=== PATIENT | male | born 1940 | race African-American/Black ===

== ENCOUNTER 2019-03-07 10:55 | Emergency (ER) | payer MEDICARE ==
--- NOTE | 2019-03-07 11:45 | ER Document Report ---
ED Medical Screen (RME) - General Chief Complaint: Shortness Of Breath Stated Complaint: SHORTNESS OF BREATH Time Seen by Provider: 03/07/19 11:26 Primary Care Provider: YOKASTA JOYCE MD [Primary Care Provider] - Follow up as needed Mode of Arrival: Ambulatory Information source: Patient Notes: 79-year-old male with history of COPD presenting with cough, congestion that has been going on for at least 1 week. Patient's daughter reports patient has had fever over the last 2 days. She states that she wants him checked out for pneumonia as he has been diagnosed with this before and it has been missed. Exam: Lung sounds clear and equal bilaterally I have greeted and performed a rapid initial assessment of this patient. A comprehensive ED assessment and evaluation of the patient, analysis of test results and completion of the medical decision making process will be conducted by additional ED providers. I have specifically instructed the patient or fa gerri members with the patient to immediately return to any nursing staff should anything change in the patient's condition or with their chief complaint. This medical record was dictated with voice recognizing software. There may be grammatical, syntax errors that are unintended. TRAVEL OUTSIDE OF THE [place] IN LAST 30 DAYS: No - Related Data Allergies/Adverse Reactions: No Known Allergies Allergy (Verified 07/30/11 16:00) Past Medical History Past Surgical History: Reports: Hx Appendectomy - Immunizations Hx Diphtheria, Pertussis, Tetanus Vaccination: Yes Physical Exam - Vital signs Vitals: Temp Pulse Resp BP Pulse Ox 97.8 F 93 18 115/55 L 91 L 03/07/19 11:19 03/07/19 11:19 03/07/19 11:19 03/07/19 11:19 03/07/19 11:19 Course - Vital Signs Vital signs: Temp Pulse Resp BP Pulse Ox 97.8 F 93 18 115/55 L 91 L 03/07/19 11:19 03/07/19 11:19 03/07/19 11:19 03/07/19 11:19 03/07/19 11:19 Doctor's Discharge - Discharge Referrals: YOKASTA JOYCE MD [Primary Care Provider] - Follow up as needed
[2019-03-07 12:12] LABS: HEMATOCRIT 39.9 % (37.9-51.0); HEMOGLOBIN 13.1 g/dL (13.5-17.0); MEAN CORPUSCULAR HGB CONC 32.9 g/dL (32.0-36.0); MEAN CORPUSCULAR VOLUME 73 fl (80-97); PLATELET COUNT 134 10^3/uL (150-450); RED BLOOD COUNT 5.47 10^6/uL (4.35-5.55); RED CELL DISTRIBUTION WIDTH 14.4 % (11.5-14.0); WHITE BLOOD COUNT 5.1 10^3/uL (4.0-10.5)
[2019-03-07 12:27] LABS: ALBUMIN 3.8 g/dL (3.5-5.0); ALKALINE PHOSPHATASE 63 U/L (38-126); ANION GAP 12 (5-19); ASPARTATE AMINO TRANSFERASE 38 U/L (17-59); BILIRUBIN,DIRECT 0.3 mg/dL (0.0-0.4); BILIRUBIN,TOTAL 0.7 mg/dL (0.2-1.3); BLOOD UREA NITROGEN 31 mg/dL (7-20); CALCIUM 9.2 mg/dL (8.4-10.2); CARBON DIOXIDE 27 mmol/L (22-30); CHLORIDE 98 mmol/L (98-107); GLUCOSE 100 mg/dL (75-110); POTASSIUM 4.3 mmol/L (3.6-5.0); TOTAL PROTEIN 7.4 g/dL (6.3-8.2)
[2019-03-07 12:41] LABS: ABSOLUTE LYMPHOCYTES# (MANUAL) 1.8 10^3/uL (0.5-4.7); ABSOLUTE MONOCYTES # (MANUAL) 0.4 10^3/uL (0.1-1.4); BASOPHILS % (MANUAL) 2 % (0-2); EOSINOPHILS % (MANUAL) 0 % (0-6); LYMPHOCYTES % (MANUAL) 30 % (13-45); MONOCYTES % (MANUAL) 7 % (3-13); NUCLEATED RED BLOOD CELLS 2 /100 WBC (0); SEGMENTED NEUTROPHILS % (MAN) 56 % (42-78); TOTAL CELLS COUNTED 100
[2019-03-07 12:42] LABS: ANISOCYTOSIS SLIGHT; HYPOCHROMASIA SLIGHT; PLATELET COMMENT ADEQUATE; PLATELET GIANT PRESENT; PLATELET LARGE PRESENT; SMUDGE CELLS PRESENT
--- NOTE | 2019-03-07 12:42 | RADIOLOGY REPORT (SQ) ---
EXAM DESCRIPTION: CHEST 2 VIEWS COMPLETED DATE/TIME: 03/07/2019 11:59 am REASON FOR STUDY: cough/fever COMPARISON: PA and lateral views of the chest from 02/20/2013. EXAM PARAMETERS: NUMBER OF VIEWS: two views TECHNIQUE: PA and lateral views of the chest were obtained. RADIATION DOSE: NA LIMITATIONS: none FINDINGS: LUNGS AND PLEURA: Findings of COPD without a superimposed consolidation, pleural effusion or pneumothorax. MEDIASTINUM AND HILAR STRUCTURES: No mediastinal or hilar contour abnormality. HEART AND VASCULAR STRUCTURES: The cardiac silhouette and pulmonary vasculature are within normal bowers its. BONES: No acute findings. HARDWARE: None in the chest. OTHER: No other finding. IMPRESSION: No acute cardiopulmonary process. TECHNICAL DOCUMENTATION: JOB ID: [id number] [employer]- All Rights Reserved Reading location - IP/workstation name: [email or web address]
[2019-03-07] MEDS ORDERED: IPRATROPIUM/ALBUTEROL 0.5-2.5 MG/3 ML AMPUL NEB ONE (13:25)
[2019-03-07] MEDS ORDERED: NORMAL SALINE 1000 ML 1,000 ML IV ONE (13:25)
--- NOTE | 2019-03-07 13:31 | ER Document Report ---
ED Respiratory Problem - General Chief Complaint: Shortness Of Breath Stated Complaint: SHORTNESS OF BREATH Time Seen by Provider: 03/07/19 11:26 Primary Care Provider: YOKASTA JOYCE MD [Primary Care Provider] - Follow up as needed Mode of Arrival: Ambulatory Notes: Patient is a 79-year-old male with a history of COPD, leukemia (in remission), hypertension who presents the emergency department with a chief complaint of cough and congestion. Patient reports he has had a productive cough with beige sputum and congestion for about 1 week. Patient reports he is not on oxygen for his COPD but does use his albuterol inhaler as needed. Patient states he feels like he is used his inhaler a few times over the past week. Patient denies wheezing. Patient reports last which was 6 days ago he felt like he had chills but has not had a fever at home. Patient reports over the past week due to his cough he has not wanted to get out of the bed and has had decreased liquid intake. Patient does smoke 1 pack of cigarettes per day. TRAVEL OUTSIDE OF THE [place] IN LAST 30 DAYS: No - Related Data Allergies/Adverse Reactions: No Known Allergies Allergy (Verified 07/30/11 16:00) Past Medical History - General Information source: Patient - Social History Smoking Status: Current Every Day Smoker Chew tobacco use (# tins/day): No Frequency of alcohol use: None Drug Abuse: None Lives with: Family Family History: None Patient has suicidal ideation: No Patient has homicidal ideation: No - Past Medical History Cardiac Medical History: Reports: Hx Hypertension Pulmonary Medical History: Reports: Hx COPD, Hx Pneumonia EENT Medical History: Reports: None Neurological Medical History: Reports: None Endocrine Medical History: Reports: None Renal/ Medical History: Reports: None Malignancy Medical History: Reports Hx Leukemia GI Medical History: Reports: None Musculoskeletal Medical History: Reports None Skin Medical History: Reports None Psychiatric Medical History: Reports: None Traumatic Medical History: Reports: None Infectious Medical History: Reports: None Past Surgical History: Reports: Hx Appendectomy - Immunizations Hx Diphtheria, Pertussis, Tetanus Vaccination: Yes Review of Systems - Review of Systems Constitutional: See HPI EENT: See HPI Cardiovascular: No symptoms reported Respiratory: See HPI Gastrointestinal: See HPI Genitourinary: No symptoms reported Male Genitourinary: No symptoms reported Musculoskeletal: No symptoms reported Skin: No symptoms reported Hematologic/Lymphatic: No symptoms reported Neurological/Psychological: No symptoms reported Physical Exam - Vital signs Vitals: Temp Pulse Resp BP Pulse Ox 97.8 F 93 18 115/55 L 91 L 03/07/19 10:57 03/07/19 10:57 03/07/19 10:57 03/07/19 10:57 03/07/19 10:57 - Notes Notes: GENERAL: Well-appearing, well-nourished and in no acute distress. HEAD: Atraumatic, normocephalic. EYES: Pupils equal round and reactive to light, extraocular movements intact, sclera anicteric, conjunctiva are normal. ENT: Nares patent, oropharynx clear without exudates. Dry mucous membranes, lips dry. NECK: Normal range of motion, supple without lymphadenopathy or JVD. LUNGS: Breath sounds clear to auscultation bilaterally and equal. No wheezes or rales, + rhonchi noted to the right upper lobe anteriorly. HEART: Regular rate and rhythm without murmurs, rubs or gallops. ABDOMEN: Soft, nontender, normoactive bowel sounds. No guarding, no rebound. No masses appreciated. BACK: No cervical, thoracic, lumbar midline tenderness. No saddle anesthesia, normal distal neurovascular exam. GENITOURINARY: Deferred. EXTREMITIES: Normal range of motion, no pitting or edema. No clubbing or cyanosis. NEUROLOGICAL: Cranial nerves II through XII grossly intact. Normal speech, normal gait. PSYCH: Normal mood, normal affect. SKIN: Warm, Dry, normal turgor, no rashes or lesions noted. Course - Re-evaluation Re-evalutation: 03/07/19 13:29 Upon reevaluation of the patient as she was seen in triage patient is resting comfortably and sitting upright on stretcher. Patient does not have a cough during examination. Patient does have some scattered rhonchi in the right upper anterior lobe. Patient's chest x-ray was negative for pneumonia or any acute process, does show COPD which is consistent with the patient's history. Patient's lab work is unremarkable except an elevated BUN and creatinine. Patient does report a decreased p.o. intake over the past week due to not feeling well. We will start an IV, give IV fluids to hydrate as he does have dry mucous membranes and give a breathing treatment. Will obtain a urinalysis. Plan is to hydrate the patient, consult with his physician Dr. Joyce and discharge with strict follow-up with his primary. 03/07/19 15:30 I did speak with Dr[address] Joyce discussed the results of the patient's blood work including elevated BUN and creatinine. Patient does appear to be on a combination blood pressure pill that does have hydrochlorothiazide. He reports he will see the patient tomorrow in the office, I did speak with the paralegal legal secretary who did make an appointment for him at 930. I have made the patient and family member aware of this. - Vital Signs Vital signs: Temp Pulse Resp BP Pulse Ox 98.8 F 93 19 117/63 94 03/07/19 15:26 03/07/19 11:19 03/07/19 15:01 03/07/19 15:01 03/07/19 15:01 - Laboratory Result Diagrams: 03/07/19 11:52 03/07/19 11:52 Laboratory results interpreted by me: 03/07/19 03/07/19 03/07/19 11:52 11:52 14:15 Hgb 13.1 L MCV 73 L MCH 24.0 L RDW 14.4 H Plt Count 134 L Sodium 136.5 L BUN 31 H Creatinine 1.79 H Est GFR ( Amer) 44 L Est GFR (MDRD) Non-Af 37 L Urine Protein 30 H Urine Blood SMALL H Urine Urobilinogen 4.0 H 03/07/19 13:29 Patient does not have a significant leukocytosis. Patient's BUN and creatinine are elevated. There is no alteration in electrolytes or liver function. Laboratory 03/07/19 03/07/19 11:52 11:52 WBC 5.1 RBC 5.47 Hgb 13.1 L Hct 39.9 MCV 73 L MCH 24.0 L MCHC 32.9 RDW 14.4 H Plt Count 134 L Lymph % (Auto) Not Reportable Archer % (Auto) Not Reportable Eos % (Auto) Not Reportable Baso % (Auto) Not Reportable Absolute Neuts (auto) Not Reportable Absolute Lymphs (auto) Not Reportable Absolute Monos (auto) Not Reportable Absolute Eos (auto) Not Reportable Absolute Basos (auto) Not Reportable Total Counted 100 Seg Neutrophils % Not Reportable Seg Neuts % (Manual) 56 Lymphocytes % (Manual) 30 Atypical Lymphs % 5 Monocytes % (Manual) 7 Eosinophils % (Manual) 0 Basophils % (Manual) 2 Abs Neuts (Manual) 2.9 Abs Lymphs (Manual) 1.8 Abs Monocytes (Manual) 0.4 Absolute Eos (Manual) 0.0 Abs Basophils (Manual) 0.1 Nucleated RBCs 2 Smudge Cells PRESENT Large Platelets PRESENT Giant Platelets PRESENT Platelet Comment ADEQUATE Hypochromasia SLIGHT Anisocytosis SLIGHT Microcytosis 1+ Sodium 136.5 L Potassium 4.3 Chloride 98 Carbon Dioxide 27 Anion Gap 12 BUN 31 H Creatinine 1.79 H Est GFR ( Amer) 44 L Est GFR (MDRD) Non-Af 37 L Glucose 100 Calcium 9.2 Total Bilirubin 0.7 Direct Bilirubin 0.3 Neonat Total Bilirubin Not Reportable Neonat Direct Bilirubin Not Reportable Neonat Indirect Bili Not Reportable AST 38 ALT 15 Alkaline Phosphatase 63 Total Protein 7.4 Albumin 3.8 - Diagnostic Test Radiology reviewed: Reports reviewed Radiology results interpreted by me: 03/07/19 13:31 Chest X-Ray 03/07/19 11:43 IMPRESSION: No acute cardiopulmonary process. Discharge - Discharge Clinical Impression: Cough, Elevated BUN, Elevated serum creatinine COPD (chronic obstructive pulmonary disease) Qualifiers: COPD type: unspecified COPD Qualified Code(s): J44.9 - Chronic obstructive pulmonary disease, unspecified Condition: Stable Disposition: HOME, SELF-CARE Additional Instructions: *Today you are seen the emergency department for a cough and congestion. We did obtain a chest x-ray and basic labs which were negative for any acute abnormality. Your blood work did show that you have an elevated BUN and creatinine which is your kidney function. I did discuss the results with Dr. Joyce would like to see you in his office tomorrow. I did make you an appointment for 930. Please go to his office to be seen. In the meantime please return the emergency department if you develop any bloody sputum, fever, severe chest pain or shortness of breath. Please continue to use your albuterol inhaler as needed. Please continue to push fluids to stay hydrated. Chronic Obstructive Lung Disease You have chronic obstructive lung disease (COPD). The symptoms come from emphysema (damage to small airways, with trapping of air in large sacks in the lung) and chronic bronchitis (repeated infection and damage to larger airways). The cause is almost always cigarette smoking, although dust exposure, asthma, and infections contribute. You should avoid fumes, dust, and smoke (especially tobacco smoke). Your condition will flare from time to time. There is no cure, but the symptoms can be treated. Bronchodilators (asthma medicine) are often helpful. Antibiotics help when infection is present. When shortness of breath is severe, we may prescribe cortisone medication. If medicine doesn't help enough, we can arrange for you to have an oxygen tank at home. Notify your doctor at once if sputum becomes thick, foul, or bloody, if you develop a fever or chest pain, or if your shortness of breath worsens. Forms: Smoking Cessation Education, Special Work Note Referrals: YOKASTA JOYCE MD [Primary Care Provider] - Follow up as needed
[2019-03-07 14:30] LABS: APPEARANCE,URINE CLEAR; BILIRUBIN,URINE NEGATIVE (NEGATIVE); COLOR,URINE YELLOW; GLUCOSE, URINE NEGATIVE (NEGATIVE); KETONES,URINE NEGATIVE (NEGATIVE); LEUKOCYTE ESTERASE,URINE NEGATIVE (NEGATIVE); NITRITE,URINE NEGATIVE (NEGATIVE); PROTEIN,URINE 30 mg/dL (NEGATIVE); URINE SPECIFIC GRAVITY 1.017
[2019-03-07 15:53] VITALS: BP 137/76
== END 2019-03-07 15:43 | disposition home or self-care (01) ==
LOC: ER 10:55
DX: J44.9 Chronic obstructive pulmonary disease, unspecified (principal); R79.89 Other specified abnormal findings of blood chemistry; F17.200 Nicotine dependence, unspecified, uncomplicated; I10 Essential (primary) hypertension
CPT/HCPCS: 36415; 85025; 80053; 81001; 71046; J7030; A9270; 94640; 96360; 99285; J7620

== ENCOUNTER 2019-04-04 09:48 | Inpatient (IN) | payer MEDICARE ==
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
--- NOTE | 2019-04-04 11:28 | EKG REPORT ---
SEVERITY:- ABNORMAL ECG - SINUS TACHYCARDIA ABNRM R PROG, CONSIDER ASMI OR LEAD PLACEMENT : Confirmed by: Shama Felder 04-Apr-2019 11:27:52
--- NOTE | 2019-04-04 11:30 | RADIOLOGY REPORT (SQ) ---
EXAM DESCRIPTION: CHEST 2 VIEWS COMPLETED DATE/TIME: 04/04/2019 10:15 am REASON FOR STUDY: sob COMPARISON: 03/07/2019 EXAM PARAMETERS: NUMBER OF VIEWS: two views TECHNIQUE: Digital Frontal and Lateral radiographic views of the chest acquired. RADIATION DOSE: NA LIMITATIONS: none FINDINGS: LUNGS AND PLEURA: The lungs are hyperinflated. There is a new small left pleural effusion with compressive atelectasis at the left lung base. The right lung is clear. No pneumothorax. MEDIASTINUM AND HILAR STRUCTURES: No masses or contour abnormalities. HEART AND VASCULAR STRUCTURES: Heart normal size. No evidence for failure. BONES: No acute findings. HARDWARE: None in the chest. OTHER: No other significant finding. IMPRESSION: New small left pleural effusion. Compressive atelectasis/ consolidation at the left aidee g base. Hyperinflated lungs which can be seen with obstructive lung disease. TECHNICAL DOCUMENTATION: JOB ID: [id number] [employer]- All Rights Reserved Reading location - IP/workstation name: [email or web address]
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
[2019-04-04 11:46] LABS: ABSOLUTE LYMPHOCYTES (AUTO) 3.8 10^3/uL (0.5-4.7); ABSOLUTE MONOCYTES (AUTO) 1.1 10^3/uL (0.1-1.4); ABSOLUTE NEUT (AUTO) 13.4 10^3/uL (1.7-8.2); BASOPHILS % (AUTO) 0.8 % (0-2); EOSINOPHILS % (AUTO) 0.2 % (0-6); HEMATOCRIT 33.8 % (37.9-51.0); HEMOGLOBIN 11.2 g/dL (13.5-17.0); LYMPHOCYTES % (AUTO) 20.6 % (13-45); MEAN CORPUSCULAR HEMOGLOBIN 23.7 pg (27.0-33.4); MEAN CORPUSCULAR HGB CONC 33.1 g/dL (32.0-36.0); MEAN CORPUSCULAR VOLUME 72 fl (80-97); PLATELET COUNT 356 10^3/uL (150-450); RED BLOOD COUNT 4.73 10^6/uL (4.35-5.55); RED CELL DISTRIBUTION WIDTH 15.4 % (11.5-14.0); SEGMENTED NEUTROPHILS % (AUTO) 72.4 % (42-78); TOTAL CELLS COUNTED % (AUTO) 100 %; WHITE BLOOD COUNT 18.6 10^3/uL (4.0-10.5)
[2019-04-04 11:47] LABS: ABSOLUTE BASOPHILS # (AUTO) 0.1 10^3/uL (0.0-0.2)
[2019-04-04] MEDS ORDERED: IPRATROPIUM/ALBUTEROL 0.5-2.5 MG/3 ML AMPUL NEB SCH ×2 (12:15→14:45)
[2019-04-04 14:10] LABS: ALBUMIN 3.1 g/dL (3.5-5.0); ALKALINE PHOSPHATASE 94 U/L (38-126); ANION GAP 12 (5-19); ASPARTATE AMINO TRANSFERASE 22 U/L (17-59); BILIRUBIN,DIRECT 0.5 mg/dL (0.0-0.4); BILIRUBIN,TOTAL 0.8 mg/dL (0.2-1.3); BLOOD UREA NITROGEN 42 mg/dL (7-20); CALCIUM 9.1 mg/dL (8.4-10.2); CARBON DIOXIDE 24 mmol/L (22-30); CHLORIDE 98 mmol/L (98-107); GLUCOSE 113 mg/dL (75-110); POTASSIUM 4.1 mmol/L (3.6-5.0)
[2019-04-04] MEDS ORDERED: METHYLPREDNISOLONE INJ 125 MG/2 ML SDV IV ONE (14:36)
[2019-04-04] MEDS ORDERED: NORMAL SALINE 1000 ML 1,000 ML IV ONE (14:37)
[2019-04-04] MEDS ORDERED: CEFTRIAXONE 1 GM/D5W RTU 1 GM/50 ML RTUPB IV ONE ×2 (14:45→18:30)
[2019-04-04] MEDS ORDERED: AZITHROMYCIN INJ 500 MG VIAL IV ONE (14:46)
--- NOTE | 2019-04-04 17:02 | RADIOLOGY REPORT (SQ) ---
EXAM DESCRIPTION: NM LUNG VENT/PERF SCAN COMPLETED DATE/TIME: 04/04/2019 4:40 pm REASON FOR STUDY: 12; sob; cancer COMPARISON: PA and lateral views of the chest from 04/04/2019. RADIONUCLIDE AND DOSE: 5.14 millicuries TC-99m MAA Intravenous 32.1 millicuries TC-99m DTPA Inhaled aerosol TECHNIQUE: Eight views of the lungs acquired post ventilation of DTPA aerosol. Eight matching views of the lungs acquired following injection of MAA. LIMITATIONS: None. FINDINGS: VENTILATION: Heterogeneous distribution of the radiotracer with central clumping. There i s a matched V/Q defect in the left base that corresponds to the pleural effusion described on the cor relative radiograph. PERFUSION: Heterogeneous distribution of the radiotracer. There is no mismatched segmental V/Q defec t. OTHER: No other finding. IMPRESSION: Low probability V/Q scan. TECHNICAL DOCUMENTATION: JOB ID: [id number] [employer]- All Rights Reserved Reading location - IP/workstation name: [email or web address]
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
[2019-04-04] MEDS ORDERED: ACETAMINOPHEN 325 MG TABLET PO PRN (21:05)
[2019-04-04] MEDS ORDERED: GUAIFENESIN SYRP 200 MG/10 ML UDC PO PRN (21:06)
[2019-04-04] MEDS: NORMAL SALINE 1000 ML 1,000 ML IV PRN (21:40)
[2019-04-04] MEDS: METHYLPREDNISOLONE INJ 40 MG/1 ML SDV IV SCH (21:40)
[2019-04-04] MEDS: ATORVASTATIN CALCIUM 20 MG TABLET PO SCH (21:42)
[2019-04-04 22:20] LABS: APPEARANCE,URINE SLIGHTLY-CLOUDY; BILIRUBIN,URINE NEGATIVE (NEGATIVE); COLOR,URINE YELLOW; GLUCOSE, URINE >=500 mg/dL (NEGATIVE); KETONES,URINE NEGATIVE (NEGATIVE); PROTEIN,URINE 30 mg/dL (NEGATIVE); URINE SPECIFIC GRAVITY 1.012
[2019-04-05] MEDS: PANTOPRAZOLE SODIUM 40 MG TABLET.DR PO SCH (05:45)
[2019-04-05] MEDS: METHYLPREDNISOLONE INJ 40 MG/1 ML SDV IV SCH ×3 (05:45→21:12)
[2019-04-05 06:33] LABS: ABSOLUTE LYMPHOCYTES (AUTO) 2.6 10^3/uL (0.5-4.7); ABSOLUTE MONOCYTES (AUTO) 0.5 10^3/uL (0.1-1.4); ABSOLUTE NEUT (AUTO) 15.5 10^3/uL (1.7-8.2); BASOPHILS % (AUTO) 0.2 % (0-2); HEMATOCRIT 30.6 % (37.9-51.0); HEMOGLOBIN 10.2 g/dL (13.5-17.0); LYMPHOCYTES % (AUTO) 14.2 % (13-45); MEAN CORPUSCULAR HEMOGLOBIN 23.4 pg (27.0-33.4); MEAN CORPUSCULAR HGB CONC 33.2 g/dL (32.0-36.0); MEAN CORPUSCULAR VOLUME 70 fl (80-97); MONOCYTES % (AUTO) 2.6 % (3-13); RED BLOOD COUNT 4.35 10^6/uL (4.35-5.55); RED CELL DISTRIBUTION WIDTH 14.7 % (11.5-14.0); TOTAL CELLS COUNTED % (AUTO) 100 %; WHITE BLOOD COUNT 18.6 10^3/uL (4.0-10.5)
[2019-04-05 06:51] LABS: ALBUMIN 2.8 g/dL (3.5-5.0); ALKALINE PHOSPHATASE 85 U/L (38-126); ANION GAP 11 (5-19); ASPARTATE AMINO TRANSFERASE 25 U/L (17-59); BILIRUBIN,DIRECT 0.4 mg/dL (0.0-0.4); BILIRUBIN,TOTAL 0.4 mg/dL (0.2-1.3); BLOOD UREA NITROGEN 38 mg/dL (7-20); CALCIUM 8.8 mg/dL (8.4-10.2); CARBON DIOXIDE 25 mmol/L (22-30); CHLORIDE 100 mmol/L (98-107); GLUCOSE 179 mg/dL (75-110); PLATELET COUNT 316 10^3/uL (150-450); POTASSIUM 4.4 mmol/L (3.6-5.0); TOTAL PROTEIN 6.4 g/dL (6.3-8.2)
[2019-04-05] MEDS ORDERED: (PENDING PHARMACY ID) (Rosuvastatin Calcium [Rosuvastatin Calcium] 10 MG) PO SCH (10:00)
[2019-04-05] MEDS: AMLODIPINE BESYLATE 5 MG TABLET PO SCH (10:31)
[2019-04-05] MEDS: ENOXAPARIN SODIUM INJ 40 MG/0.4 ML DISP.SYRIN SUBCUT SCH (10:33)
[2019-04-05] MEDS: IPRATROPIUM/ALBUTEROL 0.5-2.5 MG/3 ML AMPUL NEB PRN ×2 (11:24→21:13)
[2019-04-05] MEDS: AZITHROMYCIN 500 MG in DEXTROSE 5%-WATER 250 ML IV SCH (17:33)
--- NOTE | 2019-04-05 19:08 | PDOC PROGRESS REPORT ---
Subjective Progress Note for:: 04/05/19 Subjective:: Patient still experience some episodes of wheezing. No chest pain. Coughing with sputum production persist. No fever or chills. No abdominal pain, nausea or vomiting. Reason For Visit: LOBAR PNEUMONIA,COPD,HTN,HLD Physical Exam Vital Signs: Temp Pulse Resp BP Pulse Ox 97.2 F 97 17 116/59 L 100 04/05/19 15:31 04/05/19 15:31 04/05/19 15:31 04/05/19 15:31 04/05/19 15:31 Intake & Output 04/04/19 04/05/19 04/06/19 06:59 06:59 06:59 Intake Total 1320 1080 Output Total 400 2 Balance 920 1078 Weight 64.8 kg General appearance: PRESENT: no acute distress, well-developed, well-nourished Head exam: PRESENT: atraumatic, normocephalic Eye exam: PRESENT: conjunctiva pink. ABSENT: scleral icterus Ear exam: PRESENT: normal external ear exam Mouth exam: PRESENT: moist Respiratory exam: PRESENT: decreased breath sounds, rhonchi Cardiovascular exam: PRESENT: RRR. ABSENT: diastolic murmur, rubs, systolic murmur Vascular exam: ABSENT: pallor GI/Abdominal exam: PRESENT: normal bowel sounds, soft. ABSENT: distended, guarding, mass, organolmegaly, rebound, tenderness Extremities exam: ABSENT: pedal edema Neurological exam: PRESENT: alert, awake, oriented to person, oriented to place, oriented to time, oriented to situation, CN II-XII grossly intact. ABSENT: motor sensory deficit Psychiatric exam: PRESENT: appropriate affect, normal mood. ABSENT: homicidal ideation, suicidal ideation Skin exam: PRESENT: dry, warm Results Laboratory Results: 04/05/19 05:47 04/05/19 05:47 04/04/19 04/05/19 04/05/19 21:45 05:47 05:47 WBC 18.6 H RBC 4.35 Hgb 10.2 L Hct 30.6 L MCV 70 L MCH 23.4 L MCHC 33.2 RDW 14.7 H Plt Count 316 Seg Neutrophils % 83.0 H Sodium 136.0 L Potassium 4.4 Chloride 100 Carbon Dioxide 25 Anion Gap 11 BUN 38 H Creatinine 1.40 H Est GFR ( Amer) 59 L Glucose 179 H Calcium 8.8 Total Bilirubin 0.4 AST 25 Alkaline Phosphatase 85 Total Protein 6.4 Albumin 2.8 L Urine Color YELLOW Urine Appearance SLIGHTLY-CLOUDY Urine pH 5.0 Ur Specific [place] 1.012 Urine Protein 30 H Urine Glucose (UA) >=500 H Urine Ketones NEGATIVE Urine Blood SMALL H Urine RBC (Auto) 2 04/04/19 04/04/19 04/04/19 10:46 11:32 12:45 Troponin I Cancelled Cancelled Cancelled NT-Pro-B Natriuret Pep 04/04/19 04/04/19 13:35 13:37 Troponin I < 0.012 NT-Pro-B Natriuret Pep 148 Impressions: Chest X-Ray 04/04/19 10:26 IMPRESSION: New small left pleural effusion. Compressive atelectasis/ consolidation at the left lung base. Hyperinflated lungs which can be seen with obstructive lung disease. Ribs X-Ray 04/04/19 10:27 IMPRESSION: NO ACUTE DISPLACED RIB FRACTURE. Lung Scan-VQ NM 04/04/19 14:30 IMPRESSION: Low probability V/Q scan. Assessment & Plan - Diagnosis (1) Lobar pneumonia, unspecified organism Is this a current diagnosis for this admission?: Yes (2) COPD (chronic obstructive pulmonary disease) Qualifiers: COPD type: COPD with acute lower respiratory infection Qualified Code(s): J44.0 - Chronic obstructive pulmonary disease with (acute) lower respiratory infection Is this a current diagnosis for this admission?: Yes (3) HTN (hypertension) Qualifiers: Hypertension type: essential hypertension Qualified Code(s): I10 - Essential (primary) hypertension Is this a current diagnosis for this admission?: Yes (4) HLD (hyperlipidemia) Qualifiers: Hyperlipidemia type: unspecified Qualified Code(s): E78.5 - Hyperlipidemia, unspecified Is this a current diagnosis for this admission?: Yes (5) Personal history of CLL (chronic lymphocytic leukemia) Is this a current diagnosis for this admission?: Yes (6) History of non-Hodgkin's lymphoma Is this a current diagnosis for this admission?: Yes - Time Time Spent with patient: 25-34 minutes Level of Care: IMCU Medications reviewed and adjusted accordingly: Yes Anticipated discharge: Home with Homehealth Within: Other - Inpatient Certification Based on my medical assessment, after consideration of the patient's comorbidities, presenting symptoms, or acuity I expect that the services needed warrant INPATIENT care.: Yes I certify that my determination is in accordance with my understanding of Medicare's requirements for reasonable and necessary INPATIENT services [42 CFR 412.3e].: Yes Medical Necessity: Significant Comorbidiites Make Outpatient Treatment Too Risky, Need Close Monitoring Due to Risk of Patient Decompensation, Need For IV Fluids, Need For Continuous Telemetry Monitoring, Need for Nebulizer Therapy and Monitoring of Response, Need for IV Antibiotics, Risk of Complication if Not Cared For in Hospital, Risk of Diagnosis Which Will Require Inpatient Eval/Car e/Monitoring Post Hospital Care: D/C Spinner Continuous Documentation - Plan Summary Plan Summary: Continue current medication management. Emphasized call for bronchodilators treatment for wheezing on prn bases. Follow up on blood and sputum culture findings.
[2019-04-05] MEDS: ATORVASTATIN CALCIUM 20 MG TABLET PO SCH (21:12)
[2019-04-05] MEDS: CEFTRIAXONE 1 GM/D5W RTU 1 GM/50 ML RTUPB IV SCH (21:13)
[2019-04-06] MEDS: METHYLPREDNISOLONE INJ 40 MG/1 ML SDV IV SCH ×3 (05:19→22:14)
[2019-04-06] MEDS: NORMAL SALINE 1000 ML 1,000 ML IV PRN ×2 (05:19→17:03)
[2019-04-06] MEDS: PANTOPRAZOLE SODIUM 40 MG TABLET.DR PO SCH (05:19)
[2019-04-06] MEDS: AMLODIPINE BESYLATE 5 MG TABLET PO SCH (10:37)
[2019-04-06] MEDS: ENOXAPARIN SODIUM INJ 40 MG/0.4 ML DISP.SYRIN SUBCUT SCH (10:37)
[2019-04-06] MEDS: IPRATROPIUM/ALBUTEROL 0.5-2.5 MG/3 ML AMPUL NEB PRN ×2 (14:14→20:48)
[2019-04-06] MEDS: AZITHROMYCIN 500 MG in DEXTROSE 5%-WATER 250 ML IV SCH (17:04)
--- NOTE | 2019-04-06 17:43 | PDOC PROGRESS REPORT ---
Subjective Progress Note for:: 04/06/19 Subjective:: Patient reported improvement in his breathing and use of nebulizer treatment on prn bases. No chest pain. No fever or chills. No abdominal pain, nausea or vomiting. Reason For Visit: LOBAR PNEUMONIA,COPD,HTN,HLD Physical Exam Vital Signs: Temp Pulse Resp BP Pulse Ox 97.1 F 100 17 117/65 97 04/06/19 15:18 04/06/19 15:18 04/06/19 15:18 04/06/19 15:18 04/06/19 15:18 Intake & Output 04/05/19 04/06/19 04/07/19 06:59 06:59 06:59 Intake Total 1320 2640 1360 Output Total 400 372 0 Balance 920 2268 1360 Weight 64.8 kg 66.2 kg Physical Exam: General appearance: PRESENT: no acute distress, well-developed, well-nourished Head exam: PRESENT: atraumatic, normocephalic Eye exam: PRESENT: conjunctiva pink. ABSENT: pallor, scleral icterus Ear exam: PRESENT: normal external ear exam Mouth exam: PRESENT: moist Respiratory exam: PRESENT: decreased breath sounds, rhonchi Cardiovascular exam: PRESENT: RRR. ABSENT: diastolic murmur, rubs, systolic murmur Vascular exam: ABSENT: pallor GI/Abdominal exam: PRESENT: normal bowel sounds, soft. ABSENT: distended, guarding, mass, organolmegaly, rebound, tenderness Extremities exam: ABSENT: pedal edema Neurological exam: PRESENT: alert, awake, oriented to person, oriented to place, oriented to time, oriented to situation, CN II-XII grossly intact. ABSENT: annika r sensory deficit Psychiatric exam: PRESENT: appropriate affect, normal mood. ABSENT: homicidal ideation, suicidal ideation Skin exam: PRESENT: dry, warm Results Laboratory Results: 04/05/19 05:47 04/05/19 05:47 04/04/19 15:01 Blood Blood Culture (PCR) - Final 04/04/19 21:45 Clean Catch Midstream Urine Culture - Final Mixed Urogenital Eileen 04/04/19 04/04/19 04/04/19 10:46 11:32 12:45 Troponin I Cancelled Cancelled Cancelled NT-Pro-B Natriuret Pep 04/04/19 04/04/19 13:35 13:37 Troponin I < 0.012 NT-Pro-B Natriuret Pep 148 Impressions: Chest X-Ray 04/04/19 10:26 IMPRESSION: New small left pleural effusion. Compressive atelectasis/ consolidation at the left lung base. Hyperinflated lungs which can be seen with obstructive lung disease. Ribs X-Ray 04/04/19 10:27 IMPRESSION: NO ACUTE DISPLACED RIB FRACTURE. Lung Scan-VQ NM 04/04/19 14:30 IMPRESSION: Low probability V/Q scan. Assessment & Plan - Diagnosis (1) Lobar pneumonia, unspecified organism Is this a current diagnosis for this admission?: Yes (2) COPD (chronic obstructive pulmonary disease) Qualifiers: COPD type: COPD with acute lower respiratory infection Qualified Code(s): J44.0 - Chronic obstructive pulmonary disease with (acute) lower respiratory infection Is this a current diagnosis for this admission?: Yes (3) HTN (hypertension) Qualifiers: Hypertension type: essential hypertension Qualified Code(s): I10 - Essential (primary) hypertension Is this a current diagnosis for this admission?: Yes (4) HLD (hyperlipidemia) Qualifiers: Hyperlipidemia type: unspecified Qualified Code(s): E78.5 - Hyperlipidemia, unspecified Is this a current diagnosis for this admission?: Yes (5) Personal history of CLL (chronic lymphocytic leukemia) Is this a current diagnosis for this admission?: Yes (6) History of non-Hodgkin's lymphoma Is this a current diagnosis for this admission?: Yes - Time Time Spent with patient: 25-34 minutes Level of Care: IMCU Medications reviewed and adjusted accordingly: Yes Anticipated discharge: Home with Homehealth Within: Other - Inpatient Certification Based on my medical assessment, after consideration of the patient's comorbidities, presenting symptoms, or acuity I expect that the services needed warrant INPATIENT care.: Yes I certify that my determination is in accordance with my understanding of Medicare's requirements for reasonable and necessary INPATIENT services [42 CFR 412.3e].: Yes Medical Necessity: Significant Comorbidiites Make Outpatient Treatment Too Risky, Need Close Monitoring Due to Risk of Patient Decompensation, Need For IV Fluids, Need For Continuous Telemetry Monitoring, Need for Nebulizer Therapy and Monitoring of Response, Need for IV Antibiotics, Risk of Complication if Not Cared For in Hospital, Risk of Diagnosis Which Will Require Inpatient Eval/Car e/Monitoring Post Hospital Care: D/C Maintenance Supervisor Electrical Documentation - Plan Summary Plan Summary: Continue IV antibiotic therapy. Follow up on blood and sputum culture final findings. Maintain on all other current medication management. Obtain CBC with diff in am.
[2019-04-06] MEDS: CEFTRIAXONE 1 GM/D5W RTU 1 GM/50 ML RTUPB IV SCH (20:40)
[2019-04-06] MEDS: ATORVASTATIN CALCIUM 20 MG TABLET PO SCH (22:14)
[2019-04-07] MEDS: NORMAL SALINE 1000 ML 1,000 ML IV PRN ×2 (04:12→16:55)
[2019-04-07] MEDS: METHYLPREDNISOLONE INJ 40 MG/1 ML SDV IV SCH ×3 (05:19→21:41)
[2019-04-07] MEDS: PANTOPRAZOLE SODIUM 40 MG TABLET.DR PO SCH (05:20)
[2019-04-07 06:17] LABS: ABSOLUTE LYMPHOCYTES (AUTO) 3.3 10^3/uL (0.5-4.7); ABSOLUTE MONOCYTES (AUTO) 0.2 10^3/uL (0.1-1.4); ABSOLUTE NEUT (AUTO) 11.8 10^3/uL (1.7-8.2); BASOPHILS % (AUTO) 0.2 % (0-2); HEMATOCRIT 27.8 % (37.9-51.0); LYMPHOCYTES % (AUTO) 21.4 % (13-45); MEAN CORPUSCULAR HEMOGLOBIN 23.4 pg (27.0-33.4); MEAN CORPUSCULAR HGB CONC 32.5 g/dL (32.0-36.0); MEAN CORPUSCULAR VOLUME 72 fl (80-97); MONOCYTES % (AUTO) 1.3 % (3-13); PLATELET COUNT 344 10^3/uL (150-450); RED BLOOD COUNT 3.87 10^6/uL (4.35-5.55); SEGMENTED NEUTROPHILS % (AUTO) 77.1 % (42-78); TOTAL CELLS COUNTED % (AUTO) 100 %; WHITE BLOOD COUNT 15.3 10^3/uL (4.0-10.5)
[2019-04-07 06:25] LABS: ANION GAP 6 (5-19); BLOOD UREA NITROGEN 33 mg/dL (7-20); CALCIUM 8.2 mg/dL (8.4-10.2); CARBON DIOXIDE 24 mmol/L (22-30); CHLORIDE 107 mmol/L (98-107); GLUCOSE 163 mg/dL (75-110); POTASSIUM 5.1 mmol/L (3.6-5.0)
[2019-04-07] MEDS: IPRATROPIUM/ALBUTEROL 0.5-2.5 MG/3 ML AMPUL NEB PRN ×3 (08:30→22:24)
[2019-04-07] MEDS: AMLODIPINE BESYLATE 5 MG TABLET PO SCH (09:06)
[2019-04-07] MEDS: ENOXAPARIN SODIUM INJ 40 MG/0.4 ML DISP.SYRIN SUBCUT SCH (09:06)
--- NOTE | 2019-04-07 16:09 | PDOC PROGRESS REPORT ---
Subjective Progress Note for:: 04/07/19 Subjective:: Patient seen by the bedside, he has a history of non-Hodgkin's lymphoma, admitted for the management of lobar pneumonia, COPD, on auscultation of his chest today he has diffuse faint wheeze bilaterally. Reason For Visit: LOBAR PNEUMONIA,COPD,HTN,HLD Physical Exam Vital Signs: Temp Pulse Resp BP Pulse Ox 97.6 F 93 18 111/62 94 04/07/19 12:59 04/07/19 14:00 04/07/19 14:00 04/07/19 12:59 04/07/19 14:00 Intake & Output 04/06/19 04/07/19 04/08/19 06:59 06:59 06:59 Intake Total 2640 3380 658 Output Total 372 1175 300 Balance 2268 2205 358 Weight 66.2 kg 68.7 kg General appearance: PRESENT: no acute distress Eye exam: PRESENT: PERRLA Respiratory exam: PRESENT: wheezes Cardiovascular exam: PRESENT: +S1, +S2 GI/Abdominal exam: PRESENT: soft Results Laboratory Results: 04/07/19 05:27 04/07/19 05:27 04/07/19 04/07/19 05:27 05:27 WBC 15.3 H RBC 3.87 L Hgb 9.0 L Hct 27.8 L MCV 72 L MCH 23.4 L MCHC 32.5 RDW 15.0 H Plt Count 344 Seg Neutrophils % 77.1 Sodium 137.3 Potassium 5.1 H Chloride 107 Carbon Dioxide 24 Anion Gap 6 BUN 33 H Creatinine 1.10 Est GFR ( Amer) > 60 Glucose 163 H Calcium 8.2 L 04/04/19 15:01 Blood Blood Culture (PCR) - Final 04/04/19 21:45 Clean Catch Midstream Urine Culture - Final Mixed Urogenital Eileen 04/04/19 04/04/19 04/04/19 10:46 11:32 12:45 Troponin I Cancelled Cancelled Cancelled NT-Pro-B Natriuret Pep 04/04/19 04/04/19 13:35 13:37 Troponin I < 0.012 NT-Pro-B Natriuret Pep 148 Impressions: Chest X-Ray 04/04/19 10:26 IMPRESSION: New small left pleural effusion. Compressive atelectasis/ consolidation at the left lung base. Hyperinflated lungs which can be seen with obstructive lung disease. Ribs X-Ray 04/04/19 10:27 IMPRESSION: NO ACUTE DISPLACED RIB FRACTURE. Lung Scan-VQ NM 04/04/19 14:30 IMPRESSION: Low probability V/Q scan. Assessment & Plan - Diagnosis (1) Acute exacerbation of chronic obstructive pulmonary disease (COPD) Is this a current diagnosis for this admission?: Yes Plan: Continue IV Solu-Medrol, IV antibiotic, bronchodilators (2) Lobar pneumonia, unspecified organism Is this a current diagnosis for this admission?: Yes (3) History of non-Hodgkin's lymphoma Is this a current diagnosis for this admission?: Yes - Time Time Spent with patient: 25-34 minutes
[2019-04-07] MEDS: AZITHROMYCIN 500 MG in DEXTROSE 5%-WATER 250 ML IV SCH (17:00)
[2019-04-07] MEDS: CEFTRIAXONE 1 GM/D5W RTU 1 GM/50 ML RTUPB IV SCH (20:11)
[2019-04-07] MEDS: ATORVASTATIN CALCIUM 20 MG TABLET PO SCH (21:41)
[2019-04-08] MEDS: PANTOPRAZOLE SODIUM 40 MG TABLET.DR PO SCH (06:04)
[2019-04-08] MEDS: METHYLPREDNISOLONE INJ 40 MG/1 ML SDV IV SCH ×2 (06:04→15:21)
[2019-04-08] MEDS: NORMAL SALINE 1000 ML 1,000 ML IV PRN ×2 (06:05→16:57)
[2019-04-08] MEDS: IPRATROPIUM/ALBUTEROL 0.5-2.5 MG/3 ML AMPUL NEB PRN ×2 (08:29→20:32)
[2019-04-08] MEDS: ENOXAPARIN SODIUM INJ 40 MG/0.4 ML DISP.SYRIN SUBCUT SCH (09:31)
[2019-04-08] MEDS: AMLODIPINE BESYLATE 5 MG TABLET PO SCH (09:31)
--- NOTE | 2019-04-08 15:27 | PDOC PROGRESS REPORT ---
Subjective Progress Note for:: 04/08/19 Subjective:: Patient seen by the bedside, the blood culture with PCR ID was negative for any of the when known coronary 26 organisms the blood culture was positive for corynebacteria and cocci in clusters, these are probably contaminant. Reason For Visit: LOBAR PNEUMONIA,COPD,HTN,HLD Physical Exam Vital Signs: Temp Pulse Resp BP Pulse Ox 97.4 F 88 16 134/78 H 100 04/08/19 11:37 04/08/19 14:00 04/08/19 11:37 04/08/19 11:37 04/08/19 11:37 Intake & Output 04/07/19 04/08/19 04/09/19 06:59 06:59 06:59 Intake Total 3380 3978 480 Output Total 1175 1050 600 Balance 2205 2928 -120 Weight 68.7 kg 68.7 kg General appearance: PRESENT: no acute distress Eye exam: PRESENT: PERRLA Respiratory exam: PRESENT: wheezes Cardiovascular exam: PRESENT: +S1, +S2 GI/Abdominal exam: PRESENT: soft Neurological exam: PRESENT: alert, CN II-XII grossly intact Results Laboratory Results: 04/07/19 05:27 04/07/19 05:27 04/04/19 15:01 Blood Blood Culture (PCR) - Final 04/04/19 04/04/19 04/04/19 10:46 11:32 12:45 Troponin I Cancelled Cancelled Cancelled NT-Pro-B Natriuret Pep 04/04/19 04/04/19 13:35 13:37 Troponin I < 0.012 NT-Pro-B Natriuret Pep 148 Impressions: Chest X-Ray 04/04/19 10:26 IMPRESSION: New small left pleural effusion. Compressive atelectasis/ consolidation at the left lung base. Hyperinflated lungs which can be seen with obstructive lung disease. Ribs X-Ray 04/04/19 10:27 IMPRESSION: NO ACUTE DISPLACED RIB FRACTURE. Lung Scan-VQ NM 04/04/19 14:30 IMPRESSION: Low probability V/Q scan. Assessment & Plan - Diagnosis (1) Acute exacerbation of chronic obstructive pulmonary disease (COPD) Is this a current diagnosis for this admission?: Yes Plan: Patient still have expiratory wheeze, presently on Solu-Medrol, IV antibiotic. Chest x-ray showed hyperinflated lung consistent with COPD, will DC Solu-Medrol start Trelegy continue bronchodilators (2) Lobar pneumonia, unspecified organism Is this a current diagnosis for this admission?: Yes (3) History of non-Hodgkin's lymphoma Is this a current diagnosis for this admission?: Yes - Time Time Spent with patient: 25-34 minutes
[2019-04-08] MEDS: FLUTICASONE/UMECLIDIN/VILANTER 100-62.5-25 MCG/DOSE IH SCH (17:00)
[2019-04-08] MEDS: AZITHROMYCIN 500 MG in DEXTROSE 5%-WATER 250 ML IV SCH (17:00)
[2019-04-08] MEDS: ATORVASTATIN CALCIUM 20 MG TABLET PO SCH (21:28)
[2019-04-08] MEDS: CEFTRIAXONE 1 GM/D5W RTU 1 GM/50 ML RTUPB IV SCH (21:29)
[2019-04-09] MEDS: NORMAL SALINE 1000 ML 1,000 ML IV PRN (05:02)
[2019-04-09] MEDS: PANTOPRAZOLE SODIUM 40 MG TABLET.DR PO SCH (05:02)
[2019-04-09] MEDS: IPRATROPIUM/ALBUTEROL 0.5-2.5 MG/3 ML AMPUL NEB PRN ×2 (08:34→12:34)
[2019-04-09] MEDS: AMLODIPINE BESYLATE 5 MG TABLET PO SCH (09:47)
[2019-04-09] MEDS: ENOXAPARIN SODIUM INJ 40 MG/0.4 ML DISP.SYRIN SUBCUT SCH (09:47)
[2019-04-09] MEDS: FLUTICASONE/UMECLIDIN/VILANTER 100-62.5-25 MCG/DOSE IH SCH (09:47)
[2019-04-09] MEDS: AZITHROMYCIN 500 MG in DEXTROSE 5%-WATER 250 ML IV SCH (17:24)
--- NOTE | 2019-04-09 19:03 | PDOC PROGRESS REPORT ---
Subjective Progress Note for:: 04/09/19 Subjective:: Patient denied chest pain. Breathing is better. No fever or chills. No abdominal pain, nausea or vomiting. Reason For Visit: LOBAR PNEUMONIA,COPD,HTN,HLD Physical Exam Vital Signs: Temp Pulse Resp BP Pulse Ox 97.7 F 85 16 144/74 H 96 04/09/19 15:43 04/09/19 15:59 04/09/19 15:59 04/09/19 15:43 04/09/19 15:59 Intake & Output 04/08/19 04/09/19 04/10/19 06:59 06:59 06:59 Intake Total 3978 3230 840 Output Total 1050 1800 300 Balance 2928 1430 540 Weight 68.7 kg 72.8 kg 72.8 kg Physical Exam: General appearance: PRESENT: no acute distress, well-developed, well-nourished Head exam: PRESENT: atraumatic, normocephalic Eye exam: PRESENT: conjunctiva pink. ABSENT: pallor, scleral icterus Ear exam: PRESENT: normal external ear exam Mouth exam: PRESENT: moist Respiratory exam: PRESENT: decreased breath sounds, minimal end expiratory phase rhonchi Cardiovascular exam: PRESENT: RRR. ABSENT: diastolic murmur, rubs, systolic murmur Vascular exam: ABSENT: pallor GI/Abdominal exam: PRESENT: normal bowel sounds, soft. ABSENT: distended, guarding, mass, organomegaly, rebound, tenderness Extremities exam: ABSENT: pedal edema Neurological exam: PRESENT: alert, awake, oriented to person, oriented to place, oriented to time, oriented to situation, CN II-XII grossly intact. ABSENT: motor sensory deficit Psychiatric exam: PRESENT: appropriate affect, normal mood. ABSENT: homicidal ideation, suicidal ideation Skin exam: PRESENT: dry, warm Results Laboratory Results: 04/07/19 05:27 04/07/19 05:27 04/04/19 17:30 Blood Blood Culture - Final NO GROWTH IN 5 DAYS 04/04/19 15:01 Blood Blood Culture (PCR) - Final 04/04/19 15:01 Blood Blood Culture - Final Corynebacterium Species Staphylococcus Epidermidis 04/05/19 07:10 Sputum Gram Stain - Final 04/05/19 07:10 Sputum Sputum Culture - Final C.albicans/C.dubliniensis Normal Eileen 04/04/19 04/04/19 04/04/19 10:46 11:32 12:45 Troponin I Cancelled Cancelled Cancelled NT-Pro-B Natriuret Pep 04/04/19 04/04/19 13:35 13:37 Troponin I < 0.012 NT-Pro-B Natriuret Pep 148 Impressions: Chest X-Ray 04/04/19 10:26 IMPRESSION: New small left pleural effusion. Compressive atelectasis/ consolidation at the left lung base. Hyperinflated lungs which can be seen with obstructive lung disease. Ribs X-Ray 04/04/19 10:27 IMPRESSION: NO ACUTE DISPLACED RIB FRACTURE. Lung Scan-VQ NM 04/04/19 14:30 IMPRESSION: Low probability V/Q scan. Assessment & Plan - Diagnosis (1) Lobar pneumonia, unspecified organism Is this a current diagnosis for this admission?: Yes (2) COPD (chronic obstructive pulmonary disease) Qualifiers: COPD type: COPD with acute lower respiratory infection Qualified Code(s): J44.0 - Chronic obstructive pulmonary disease with (acute) lower respiratory infection Is this a current diagnosis for this admission?: Yes (3) HTN (hypertension) Qualifiers: Hypertension type: essential hypertension Qualified Code(s): I10 - Essential (primary) hypertension Is this a current diagnosis for this admission?: Yes (4) HLD (hyperlipidemia) Qualifiers: Hyperlipidemia type: unspecified Qualified Code(s): E78.5 - Hyperlipidemia, unspecified Is this a current diagnosis for this admission?: Yes (5) Personal history of CLL (chronic lymphocytic leukemia) Is this a current diagnosis for this admission?: Yes (6) History of non-Hodgkin's lymphoma Is this a current diagnosis for this admission?: Yes - Time Time Spent with patient: 35 or more minutes Level of Care: IMCU Medications reviewed and adjusted accordingly: Yes Anticipated discharge: Home with Homehealth Within: Other - Inpatient Certification Based on my medical assessment, after consideration of the patient's comorbidities, presenting symptoms, or acuity I expect that the services needed warrant INPATIENT care.: Yes I certify that my determination is in accordance with my understanding of Medicare's requirements for reasonable and necessary INPATIENT services [42 CFR 412.3e].: Yes Medical Necessity: Significant Comorbidiites Make Outpatient Treatment Too Risky, Need Close Monitoring Due to Risk of Patient Decompensation, Need For IV Fluids, Need For Continuous Telemetry Monitoring, Need for IV Antibiotics, Risk of Complication if Not Cared For in Hospital, Risk of Diagnosis Which Will Require Inpatient Eval/Care/Monitoring Post Hospital Care: D/C Manager Requirements Documentation - Plan Summary Plan Summary: D/C IV Rocephin and Azithromycin. Start on Levofloxacin 500 mg p.o daily. D/C IV fluid. Heplock IV access.
[2019-04-09] MEDS: ATORVASTATIN CALCIUM 20 MG TABLET PO SCH (22:37)
[2019-04-10] MEDS: PANTOPRAZOLE SODIUM 40 MG TABLET.DR PO SCH (05:05)
[2019-04-10 06:11] LABS: HEMATOCRIT 34.1 % (37.9-51.0); HEMOGLOBIN 11.2 g/dL (13.5-17.0); MEAN CORPUSCULAR HEMOGLOBIN 23.1 pg (27.0-33.4); MEAN CORPUSCULAR HGB CONC 32.8 g/dL (32.0-36.0); MEAN CORPUSCULAR VOLUME 71 fl (80-97); RED BLOOD COUNT 4.84 10^6/uL (4.35-5.55); RED CELL DISTRIBUTION WIDTH 15.5 % (11.5-14.0); WHITE BLOOD COUNT 13.1 10^3/uL (4.0-10.5)
[2019-04-10 06:30] LABS: ALBUMIN 2.5 g/dL (3.5-5.0); ALKALINE PHOSPHATASE 65 U/L (38-126); ANION GAP 5 (5-19); ASPARTATE AMINO TRANSFERASE 32 U/L (17-59); BILIRUBIN,DIRECT 0.2 mg/dL (0.0-0.4); BILIRUBIN,TOTAL 0.5 mg/dL (0.2-1.3); BLOOD UREA NITROGEN 25 mg/dL (7-20); CALCIUM 8.5 mg/dL (8.4-10.2); CARBON DIOXIDE 30 mmol/L (22-30); CHLORIDE 102 mmol/L (98-107); GLUCOSE 74 mg/dL (75-110); POTASSIUM 4.9 mmol/L (3.6-5.0); TOTAL PROTEIN 5.7 g/dL (6.3-8.2)
[2019-04-10 06:48] LABS: PLATELET COUNT 419 10^3/uL (150-450)
[2019-04-10 06:54] LABS: ABSOLUTE LYMPHOCYTES# (MANUAL) 7.3 10^3/uL (0.5-4.7); ABSOLUTE MONOCYTES # (MANUAL) 0.1 10^3/uL (0.1-1.4); BASOPHILS % (MANUAL) 0 % (0-2); EOSINOPHILS % (MANUAL) 0 % (0-6); LYMPHOCYTES % (MANUAL) 54 % (13-45); MONOCYTES % (MANUAL) 1 % (3-13); SEGMENTED NEUTROPHILS % (MAN) 43 % (42-78); TOTAL CELLS COUNTED 100
[2019-04-10 06:56] LABS: SMUDGE CELLS PRESENT
[2019-04-10 06:57] LABS: ANISOCYTOSIS SLIGHT; HYPOCHROMASIA SLIGHT; OVALOCYTES SLIGHT; PLATELET COMMENT ADEQUATE
[2019-04-10] MEDS: AMLODIPINE BESYLATE 5 MG TABLET PO SCH (10:46)
[2019-04-10] MEDS: ENOXAPARIN SODIUM INJ 40 MG/0.4 ML DISP.SYRIN SUBCUT SCH (10:46)
[2019-04-10] MEDS: FLUTICASONE/UMECLIDIN/VILANTER 100-62.5-25 MCG/DOSE IH SCH (10:46)
[2019-04-10] MEDS ORDERED: LEVOFLOXACIN 500 MG TABLET PO SCH (18:00)
--- NOTE | 2019-04-10 18:48 | PDOC PROGRESS REPORT ---
Subjective Progress Note for:: 04/10/19 Subjective:: Patient denied chest pain or difficulty with breathing. No fever or chills. No abdominal pain, nausea or vomiting. Reason For Visit: LOBAR PNEUMONIA,COPD,HTN,HLD Physical Exam Vital Signs: Temp Pulse Resp BP Pulse Ox 98.0 F 102 H 16 150/82 H 96 04/10/19 17:20 04/10/19 17:20 04/10/19 17:20 04/10/19 17:20 04/10/19 17:20 Intake & Output 04/09/19 04/10/19 04/11/19 06:59 06:59 06:59 Intake Total 3230 2090 890 Output Total 1800 825 Balance 1430 1265 890 Weight 72.8 kg 72.2 kg Physical Exam: General appearance: PRESENT: no acute distress, well-developed, well-nourished Head exam: PRESENT: atraumatic, normocephalic Eye exam: PRESENT: conjunctiva pink. ABSENT: pallor, scleral icterus Ear exam: PRESENT: normal external ear exam Mouth exam: PRESENT: moist Respiratory exam: PRESENT: decreased breath sounds, very minimal end expiratory phase rhonchi Cardiovascular exam: PRESENT: RRR. ABSENT: diastolic murmur, rubs, systolic murmur Vascular exam: ABSENT: pallor GI/Abdominal exam: PRESENT: normal bowel sounds, soft. ABSENT: distended, guarding, mass, organomegaly, rebound, tenderness Extremities exam: ABSENT: pedal edema Neurological exam: PRESENT: alert, awake, oriented to person, oriented to place, oriented to time, oriented to situation, CN II-XII grossly intact. ABSENT: motor sensory deficit Psychiatric exam: PRESENT: appropriate affect, normal mood. ABSENT: homicidal ideation, suicidal ideation Skin exam: PRESENT: dry, warm Results Laboratory Results: 04/10/19 05:32 04/10/19 05:32 04/10/19 04/10/19 05:32 05:32 WBC 13.1 H RBC 4.84 Hgb 11.2 L Hct 34.1 L MCV 71 L MCH 23.1 L MCHC 32.8 RDW 15.5 H Plt Count 419 Seg Neutrophils % Not Reportable Sodium 136.6 L Potassium 4.9 Chloride 102 Carbon Dioxide 30 Anion Gap 5 BUN 25 H Creatinine 1.14 Est GFR ( Amer) > 60 Glucose 74 L Calcium 8.5 Total Bilirubin 0.5 AST 32 Alkaline Phosphatase 65 Total Protein 5.7 L Albumin 2.5 L 04/04/19 17:30 Blood Blood Culture - Final NO GROWTH IN 5 DAYS 04/04/19 04/04/19 04/04/19 10:46 11:32 12:45 Troponin I Cancelled Cancelled Cancelled NT-Pro-B Natriuret Pep 04/04/19 04/04/19 13:35 13:37 Troponin I < 0.012 NT-Pro-B Natriuret Pep 148 Impressions: Chest X-Ray 04/04/19 10:26 IMPRESSION: New small left pleural effusion. Compressive atelectasis/ consolidation at the left lung base. Hyperinflated lungs which can be seen with obstructive lung disease. Ribs X-Ray 04/04/19 10:27 IMPRESSION: NO ACUTE DISPLACED RIB FRACTURE. Lung Scan-VQ NM 04/04/19 14:30 IMPRESSION: Low probability V/Q scan. Assessment & Plan - Diagnosis (1) Lobar pneumonia, unspecified organism Is this a current diagnosis for this admission?: Yes (2) COPD (chronic obstructive pulmonary disease) Qualifiers: COPD type: COPD with acute lower respiratory infection Qualified Code(s): J44.0 - Chronic obstructive pulmonary disease with (acute) lower respiratory infection Is this a current diagnosis for this admission?: Yes (3) HTN (hypertension) Qualifiers: Hypertension type: essential hypertension Qualified Code(s): I10 - Essent ial (primary) hypertension Is this a current diagnosis for this admission?: Yes (4) HLD (hyperlipidemia) Qualifiers: Hyperlipidemia type: unspecified Qualified Code(s): E78.5 - Hyperlipidemia, unspecified Is this a current diagnosis for this admission?: Yes (5) Personal history of CLL (chronic lymphocytic leukemia) Is this a current diagnosis for this admission?: Yes (6) History of non-Hodgkin's lymphoma Is this a current diagnosis for this admission?: Yes - Time Time Spent with patient: 25-34 minutes Level of Care: IMCU Medications reviewed and adjusted accordingly: Yes Anticipated discharge: Home with Homehealth Within: Other - Inpatient Certification Based on my medical assessment, after consideration of the patient's comorbidities, presenting symptoms, or acuity I expect that the services needed warrant INPATIENT care.: Yes I certify that my determination is in accordance with my understanding of Medicare's requirements for reasonable and necessary INPATIENT services [42 CFR 412.3e].: Yes Medical Necessity: Significant Comorbidiites Make Outpatient Treatment Too Risky, Need Close Monitoring Due to Risk of Patient Decompensation, Need For Continuous Telemetry Monitoring, Risk of Complication if Not Cared For in Hospital, Risk of Diagnosis Which Will Require Inpatient Eval/Care/Monitoring Post Hospital Care: D/C Game Master Documentation - Plan Summary Plan Summary: Continue current medication management. Obtain CBC with diff in AM.
[2019-04-10] MEDS: ATORVASTATIN CALCIUM 20 MG TABLET PO SCH (21:34)
[2019-04-11] MEDS: PANTOPRAZOLE SODIUM 40 MG TABLET.DR PO SCH (05:38)
[2019-04-11 05:48] LABS: ABSOLUTE BASOPHILS # (AUTO) 0.1 10^3/uL (0.0-0.2); ABSOLUTE EOSINOPHILS # (AUTO) 0.2 10^3/uL (0.0-0.6); ABSOLUTE MONOCYTES (AUTO) 0.4 10^3/uL (0.1-1.4); ABSOLUTE NEUT (AUTO) 7.6 10^3/uL (1.7-8.2); BASOPHILS % (AUTO) 0.4 % (0-2); EOSINOPHILS % (AUTO) 1.3 % (0-6); HEMATOCRIT 37.2 % (37.9-51.0); HEMOGLOBIN 12.1 g/dL (13.5-17.0); LYMPHOCYTES % (AUTO) 42.3 % (13-45); MEAN CORPUSCULAR HEMOGLOBIN 23.2 pg (27.0-33.4); MEAN CORPUSCULAR HGB CONC 32.6 g/dL (32.0-36.0); MEAN CORPUSCULAR VOLUME 71 fl (80-97); MONOCYTES % (AUTO) 2.6 % (3-13); PLATELET COUNT 440 10^3/uL (150-450); RED BLOOD COUNT 5.22 10^6/uL (4.35-5.55); RED CELL DISTRIBUTION WIDTH 15.2 % (11.5-14.0); SEGMENTED NEUTROPHILS % (AUTO) 53.4 % (42-78); TOTAL CELLS COUNTED % (AUTO) 100 %; WHITE BLOOD COUNT 14.2 10^3/uL (4.0-10.5)
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
[2019-04-11 09:47] VITALS: BP 126/73
== END 2019-04-11 09:35 | disposition home or self-care (01) | DRG 194 ==
LOC: ER 09:48 → EH 15:03 → 3S 18:15
PROVIDERS: ADMIT Internal Medicine Geriatric Medicine; ATTEND Internal Medicine Geriatric Medicine
DX: J18.9 Pneumonia, unspecified organism (principal); J44.0 Chronic obstructive pulmonary disease with (acute) lower respiratory infection; C91.11 Chronic lymphocytic leukemia of B-cell type in remission; J44.9 Chronic obstructive pulmonary disease, unspecified; M19.90 Unspecified osteoarthritis, unspecified site; E78.5 Hyperlipidemia, unspecified; F17.200 Nicotine dependence, unspecified, uncomplicated; I10 Essential (primary) hypertension; Z90.49 Acquired absence of other specified parts of digestive tract
CPT/HCPCS: 36415; 71046; 78582; 80048; 80053; 81001; 83880; 84484; 85025; 87040; 87070; 87077; 87086; 87150; 87186; 87205; 93005; 93010; 94640; 96374; 99285; A9540; A9567; J0456; J0696; J1650; J2920; J2930; J3490; J7030; J7060; J7620; Q9969

== ENCOUNTER 2019-04-26 08:12 | Outpatient (CLI) | payer MEDICARE ==
[~2019-04-26 08:12] MED LIST: ACETAMINOPHEN 325 MG TABLET PO PRN; CONTAINER EMPTY IV PRN; DEXTROSE 5%-WATER 250 ML IV PRN; DIPHENHYDRAMINE 50 MG in NS 50 ML IV PRN; IMMUNE GLOB GAM CAPRY IV PRN; IMMUNE GLOB GAM CAPRYLATE IV PRN; [UNRECOGNIZED DRUG - OTHER] IV PRN
[2019-04-26 08:37] VITALS: BP 109/53
== END 2019-04-26 12:33 | disposition home or self-care (01) ==
LOC: II 08:12 → 5TH 08:34 → II 12:33
PROVIDERS: ATTEND Internal Medicine
DX: D80.1 Nonfamilial hypogammaglobulinemia (principal)
CPT/HCPCS: 96365; 96366; 96367; J1561 ×3; A9270 ×2; J1200; J3490

== ENCOUNTER 2019-05-24 09:13 | Outpatient (CLI) | payer MEDICARE ==
[~2019-05-24 09:13] MED LIST changes: -CONTAINER EMPTY IV PRN; -DIPHENHYDRAMINE 50 MG in NS 50 ML IV PRN; +DIPHENHYDRAMINE HCL 50 MG/ML VIAL IV PRN; -IMMUNE GLOB GAM CAPRY IV PRN; +[UNRECOGNIZED DRUG - OTHER] IV PRN; -[UNRECOGNIZED DRUG - OTHER] IV PRN
[2019-05-24 09:39] VITALS: BP 139/73
[2019-05-25] MEDS ORDERED: IMMUNE GLOB GAM CAPRYLATE IV ONE ×4 (10:15)
[2019-05-25] MEDS ORDERED: [UNRECOGNIZED DRUG - OTHER] IV ONE ×4 (10:15)
== END 2019-05-24 11:55 | disposition home or self-care (01) ==
LOC: II 09:13 → 5TH 09:15 → II 11:55
PROVIDERS: ATTEND Internal Medicine
DX: D80.1 Nonfamilial hypogammaglobulinemia (principal)
CPT/HCPCS: 96365; 96366; 96375; A9270 ×2; J1561 ×3; J1200; J3490

== ENCOUNTER 2019-08-23 08:13 | Outpatient (CLI) | payer MEDICARE ==
[~2019-08-23 08:13] MED LIST changes: -ACETAMINOPHEN 325 MG TABLET PO PRN; -DEXTROSE 5%-WATER 250 ML IV PRN; -DIPHENHYDRAMINE HCL 50 MG/ML VIAL IV PRN; +FERUMOXYTOL (NON-ESRD) 510 MG/NS 100 ML IV PRN; -IMMUNE GLOB GAM CAPRYLATE IV PRN; +NORMAL SALINE 250 ML IV PRN; -[UNRECOGNIZED DRUG - OTHER] IV PRN
[2019-08-23 08:31] VITALS: BP 111/61
== END 2019-08-23 09:34 | disposition home or self-care (01) ==
LOC: II 08:13 → 5TH 08:17 → II 09:34
PROVIDERS: ATTEND Internal Medicine
DX: D50.8 Other iron deficiency anemias (principal); N18.3 Chronic kidney disease, stage 3 (moderate)
CPT/HCPCS: 96365; Q0138; J7050

== ENCOUNTER 2019-08-30 08:34 | Outpatient (CLI) | payer MEDICARE ==
[2019-08-30 08:50] VITALS: BP 128/66
== END 2019-08-30 10:00 | disposition home or self-care (01) ==
LOC: 5TH 08:34 → II 08:34
PROVIDERS: ATTEND Internal Medicine
DX: D50.8 Other iron deficiency anemias (principal); N18.3 Chronic kidney disease, stage 3 (moderate)
CPT/HCPCS: 96365; Q0138; J7050

== ENCOUNTER → 2019-10-12 | Outpatient (CLI) | payer MEDICARE ==
--- NOTE | 2019-10-12 12:00 | ER RDC ASSESSMENT REPORT ---
Intake - In the Last 14 days Have you traveled outside [place]?: No Have you been in close contact with someone CONFIRMED: Yes Worked in Healthcare?: No - Symptoms Subjective Fever([place] feverish): No Chills: No Muscule Aches: No Runny Nose: No Sore Throat: No Cough (New or worsening chronic cough): No Shortness of breath: No Nausea or Vomiting: No Headache: No Abdominal Pain: No Diarrhea(3 or more loose stools in last 24 hours): No - Do you have any of the following Chronic lung disease: Asthma or emphysema or COPD: Yes Cystic Fibrosis: No Diabetes: No High Blood Pressure: Yes Cardiovascular Disease: Yes Chronic Kidney Disease: No Chronic Liver Disease: No Chronic blood disorder like Sickle Cell Disease: No Weak immune system due to disease or medication: No Neurologic condition that limits movement: No Developmental delay - Moderate to Severe: No Recent (within past 2 weeks) or current : No Morbid Obesity (>100 pounds over ideal weight): No Obesity Comment: Height 5 feet 7 inches weight 146 pounds - Objective Temperature: 98.6 F Pulse Rate: 76 Respiratory Rate: 20 Blood Pressure: 107/58 O2 Sat by Pulse Oximetry: 97 Objective: Given above, testing performed: If Testing Performed: Test Specimen Type Sent to General - General Information source: Patient Notes: Patient here at [facility] for COVID test. Patient reports nephew came by Tuesday this week and now has found out he is COVID positive. Patient reports nephew was asymptomatic. Patient reports he is asymptomatic. Patient sees Dr. Urban as PCP. 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 HEAD: Atraumatic, normocephalic. EYES: sclera anicteric, conjunctiva are normal. ENT: nares patent. Moist mucous membranes. NECK: Normal range of motion, supple without lymphadenopathy LUNGS: CTAB and equal. No wheezes rales or rhonchi. Resp even and unlabored. Lung sounds clear. HEART: Regular rate and rhythm without murmurs ABDOMEN: Soft, nontender, normal bowel sounds, no guarding. EXTREMITIES: No cyanosis. NEUROLOGICAL: Normal speech. PSYCH: Normal mood, normal affect. SKIN: Warm, Dry, normal turgor, Diagnostic Results Laboratory Results: Pending cover testing results. Patient provided instructions regarding COVID to include: As a person under investigation for Covid 19, the [facility] of Health and Human Services, division of public health advises you to adhere to the following guidance until your test results are reported to you. If your test result is positive, you will receive additional information from your provider and your local health department at that time. Remain at home until you are cleared by the health provider or public health authorities. Keep a log of visitors to your home, notify any visitors to your home of your isolation status. If you plan to move to a new address or leave the formerly [facility], notify the local health department in your County. Call your doctor or seek care if you have an urgent medical need. Before seeking medical care, call ahead to get instructions from the provider before arriving at the medical office clinic or hospital. Notify them that you are being tested for the virus that causes Covid 19 so that arrangements can be made, as necessary, to prevent transmission to others in the healthcare setting. Next, notify the local health department in your formerly [facility]. If a medical emergency arises and you need to call 911, inform the first responders that you are being tested for the virus that causes Covid 19. Next, notify the local health department in your county. Patient Education/Counseling Counseling/Education: Patient presents with upper respiratory symptoms worrisome for possible Covid 19. Patient does not have emergency worring symptoms such as difficulty breathing, shortness of breath, chest pain, pressure, confusion or cyanosis. Patient appears suitable for discharge. Patient instructed to follow-up with PCP Dr. Urban today. To ED for change in condition or worsening. patient's vital signs are stable and patient is nontoxic in appearance. Good return precautions have been discussed with patient, patient verbalized understanding and is agreeable with discharge plan of care at this time. RDC Discharge - Discharge Clinical Impression: Encounter for screening laboratory testing for COVID-19 virus in asymptomatic patient Condition: Stable Disposition: Home; Selfcare
[2019-10-12 12:01] VITALS: BP 107/58
== END ==
LOC: RDC 10:48
PROVIDERS: ATTEND Nurse Practitioner Family
DX: U07.1 COVID-19 (principal); I10 Essential (primary) hypertension; E78.00 Pure hypercholesterolemia, unspecified; Z85.72 Personal history of non-Hodgkin lymphomas; Z85.6 Personal history of leukemia; M13.80 Other specified arthritis, unspecified site; Z87.891 Personal history of nicotine dependence
CPT/HCPCS: 99201; U0003; G0463; C9803; 87635; 99211